=== PATIENT | female | born 1975 | race Caucasian/White ===

== ENCOUNTER 2017-03-20 10:43 | Emergency (ER) | payer BC ==
--- NOTE | 2017-03-20 12:50 | UC ---
Respiratory Complaint HPI - HPI Summary HPI Summary: Patient presents with an unremarkable past medical history. She presents today with complaints of 5 day onset sinus pain, pressure, and rhinorrhea, sore throat chest congestion and coughing. She reports that she believes she has been running a fever, but has not taken it. She denies chest pain, abdominal pain, nausea, vomiting, or diarrhea. States she has been using OTC cough and cold remedies without any relief. - History of Current Complaint Chief Complaint: UCRespiratory Stated Complaint: SORE THROAT, AND COUGH Time Seen by Provider: 03/20/17 12:37 Hx Obtained From: Patient Hx Last Menstrual Period: uterine ablation 2016 ?: No Onset/Duration: Lasting Days Timing: Constant Severity Initially: Mild Severity Currently: Moderate Character: Cough: Nonproductive Aggravating Factors: Recumbent Position Alleviating Factors: Upright Position, Spontaneous Resolution Associated Signs And Symptoms: Positive: URI, Nasal Congestion, Sinus Discomfort - Risk Factors Pulmonary Embolism Risk Factors: Negative Cardiac Risk Factors: Negative Pseudomonas Risk Factors: Negative Tuberculosis Risk Factors: Negative - Allergies/Home Medications Allergies/Adverse Reactions: Allergies Allergy/AdvReac Type Severity Reaction Status Date / Time Latex Allergy Rash Verified 03/20/17 11:00 Doxycycline AdvReac GI Upset Verified 03/20/17 11:00 Home Medications: Home Medications Chlorpheniramine-Phenylephrine [Coricidin D Cold/Flu/Sinu 2-5-325 mg] 2 tab PO Q4H PRN 03/20/17 [History Confirmed 03/20/17] Oxymetazoline 0.05% NASAL SPR* [Afrin 0.05% NASAL SPRAY*] 2 spr NASAL 03/20/17 [ History] PMH/Surg Hx/FS Hx/Imm Hx Previously Healthy: Yes - Surgical History Surgical History: Yes Surgery Procedure, Year, and Place: [place] [facility] [place]ies benign and [place] [facility] [place] plantars wart, right thigh tumor benign, UTERINE ABLATION - Family History Known Family History: Positive: Cardiac Disease, Hypertension - Social History Occupation: Employed Full-time Lives: Alone Alcohol Use: None Substance Use Type: None Smoking Status (MU): Former Smoker Type: Cigarettes Amount Used/How Often: PACK A WEEK Length of Time of Smoking/Using Tobacco: OCCASIONALY FOR A COUPLE YEARS IN EARLY 20'S Have You Smoked in the Last Year: No When Did the Patient Quit Smoking/Using Tobacco: 2004 - Immunization History Most Recent Influenza Vaccination: 2017 Review of Systems Constitutional: Negative Skin: Negative Eyes: Negative ENT: Sore Throat, Nasal Discharge, Sinus Congestion, Sinus Pain/Tenderness Respiratory: Negative Cardiovascular: Negative Gastrointestinal: Negative Genitourinary: Negative Motor: Negative Neurovascular: Negative Musculoskeletal: Negative Neurological: Negative Psychological: Negative Is Patient Immunocompromised?: No All Other Systems Reviewed And Are Negative: Yes Physical Exam Triage Information Reviewed: Yes Vital Signs: Initial Vital Signs Temp 98.6 F 03/20/17 10:56 Pulse 91 03/20/17 10:56 Resp 14 03/20/17 10:56 BP 131/87 03/20/17 10:56 Pulse Ox 97 03/20/17 10:56 Eye Exam: Normal ENT Exam: Normal Neck exam: Normal Neck: Positive: 1 Respiratory Exam: Normal Cardiovascular Exam: Normal Psychological Exam: Normal Skin Exam: Normal UC Diagnostic Evaluation - Laboratory O2 Sat by Pulse Oximetry: 97 Respiratory Course/Dx - Course Course Of Treatment: Patient presents with an unremarkable past medical history. VSS. Patient rapid strep was negative. Her symtpoms are viral and antibiotics at this time are contraindicated. She was instructed to continue with her current medical plan with OTC cough and cold remedies. - Differential Dx/Diagnosis Differential Diagnosis/HQI/PQRI: Other - URI Viral syndrome Provider Diagnoses: URI. Viral sydrome Discharge - Discharge Plan Condition: Stable Disposition: HOME Patient Education Materials: Upper Respiratory Infection (ED) Referrals: Joey Rodriguez MD [Primary Care Provider] -
[2017-03-20 13:03] VITALS: BP 136/82
== END 2017-03-20 12:58 | disposition home or self-care (01) ==
LOC: UCEAST 10:43
DX: J06.9 Acute upper respiratory infection, unspecified (principal); B34.9 Viral infection, unspecified; Z91.040 Latex allergy status; Z88.1 Allergy status to other antibiotic agents; Z87.891 Personal history of nicotine dependence
CPT/HCPCS: 87651; 99212; G0463

== ENCOUNTER 2017-09-30 20:41 | Emergency (ER) | payer BC ==
[2017-09-30 21:15] VITALS: BP 144/94
[2017-09-30] MEDS ORDERED: predniSONE TAB* 20 MG PO ONE (22:18)
--- NOTE | 2017-09-30 22:25 | UC ---
Per Talbert Rebecca, scribed for Fairba Tuttle MD on 09/30/17 at 2214 . Skin Complaint HPI - HPI Summary HPI Summary: Pt is a 42 y/o F who presents to [facility] c/o bilateral LE rash for 5 days. Rash is erythematous, pruritic and painful, ranked 3/10 on triage. Has tried using various sprays and taking Zuri for the itching, though it was not improving sx. Rash is not present anywhere else. Reports that it is draining, that if she does not wrap the region, it drains down her legs and into her shoes. Suspects that she was exposed while fishing over the weekend (5 days ago). Son was diagnosed with poison julisa today as well. Has taken Prednisone in the past for asthma without problems. - History of Current Complaint Chief Complaint: [facility] Time Seen by Provider: 09/30/17 22:00 Stated Complaint: RASHES Hx Obtained From: Patient Hx Last Menstrual Period: uterine ablation 2015 Onset/Duration: Lasting Days - 5 days, Still Present Current Severity: Mild Pain Intensity: 3 Pain Scale Used: 0-10 Numeric Location: Other - Bilateral LE Character: Pruritus, Pain, Redness Aggravating Factor(s): Nothing Alleviating Factor(s): Nothing Associated Signs & Symptoms: Positive: Drainage - Allergy/Home Medications Allergies/Adverse Reactions: Allergies Allergy/AdvReac Type Severity Reaction Status Date / Time doxycycline Allergy GI Upset Verified 09/30/17 21:17 Latex, Natural Rubber Allergy Rash Verified 09/30/17 21:17 Review of Systems Constitutional: Negative Skin: Rash - Bilateral LE rash with drainage Eyes: Negative ENT: Negative Respiratory: Negative Cardiovascular: Negative Gastrointestinal: Negative Genitourinary: Negative Motor: Negative Neurovascular: Negative Musculoskeletal: Negative Neurological: Negative Psychological: Negative All Other Systems Reviewed And Are Negative: Yes PMH/Surg Hx/FS Hx/Imm Hx - Additional Past Medical History Additional PMH: NEGATIVE PMHx: HTN, COPD Cardiovascular History: Other Other Cardiovascular History: Heart murmur, PACs Respiratory History: Asthma - Surgical History Surgical History: Yes Surgery Procedure, Year, and Place: [place] [facility] [place] B[place] Breast Lumpectomies benign and Reduction, [place], [facility] [place] left foot plantars wart, right thigh tumor benign, UTERINE ABLATION - Family History Known Family History: Positive: Cardiac Disease, Hypertension - Social History Lives: With Family Alcohol Use: Rare Substance Use Type: None Smoking Status (MU): Former Smoker Type: Cigarettes Amount Used/How Often: PACK A WEEK Length of Time of Smoking/Using Tobacco: OCCASIONALY FOR A COUPLE YEARS IN EARLY 20'S Have You Smoked in the Last Year: No When Did the Patient Quit Smoking/Using Tobacco: 2003 - Immunization History Most Recent Influenza Vaccination: 2016 Physical Exam Vital Signs: Initial Vital Signs Temp 99.1 F 09/30/17 21:10 Pulse 87 09/30/17 21:10 Resp 16 09/30/17 21:10 BP 144/94 09/30/17 21:10 Pulse Ox 98 09/30/17 21:10 Course/Dx - Course Course Of Treatment: Patient medications and allergies reviewed this visit. Discharge - Sign-Out/Discharge Documenting (check all that apply): Discharge/Admit/Transfer - Discharge - Discharge Plan Condition: Stable Disposition: HOME Prescriptions: predniSONE TAB* [Deltasone 20 MG TAB*] 20 mg PO DAILY #12 tab Patient Education Materials: Contact Dermatitis (ED) Referrals: Joey Rodriguez MD [Primary Care Provider] - Additional Instructions: - Take prednisone exactly as prescribed until gone - starting tomorrow - Okay to take Benadryl (1-2 tablets) every 6 hours as needed. This medication may cause drowsiness - do NOT drive, operate machinery or drink alcohol while taking Benadryl -Avoid getting over heated (hot showers, hot tubs, exercise) for at least 48 hours - Try to avoid aspirin, NSAIDs (Motrin, Aleve, Naprosyn) for 2-3 days - Okay to apply cool compresses to the area of injury - Go to an urgent care or an emergency department with questions or concerns - Billing Disposition and Condition Condition: STABLE Disposition: Home The documentation as recorded by the Per mcguire Rebecca accurately reflects the service I personally performed and the decisions made by , Fariba Tuttle MD.
== END 2017-09-30 22:40 | disposition home or self-care (01) ==
LOC: UCEAST 20:41
DX: R21 Rash and other nonspecific skin eruption (principal); Z88.0 Allergy status to penicillin; Z91.040 Latex allergy status; Z87.891 Personal history of nicotine dependence
CPT/HCPCS: 99212; G0463; J7512

== ENCOUNTER 2018-07-22 08:16 | Emergency (ER) | payer BC ==
[2018-07-22 08:25] VITALS: BP 127/86
--- NOTE | 2018-07-22 10:06 | UC ---
General HPI - HPI Summary HPI Summary: 43 yo female c/o last several days sinus congestion and now + cough. No fever / chills. Unsure of color of phlegm (doesn't look). No rash. No sob /cp / palpitations. No GI iissues. Some ear fullness. Hx bronchospasm younger, but not much now. Does have inhaler, not sure how old. - History of Current Complaint Chief Complaint: UCRespiratory Stated Complaint: sinus headache Time Seen by Provider: 07/22/18 09:36 Hx Obtained From: Patient Hx Last Menstrual Period: ablasion Pain Intensity: 3 - Allergy/Home Medications Allergies/Adverse Reactions: Allergies Allergy/AdvReac Type Severity Reaction Status Date / Time doxycycline Allergy GI Upset Verified 07/22/18 08:25 Latex, Natural Rubber Allergy Rash Verified 07/22/18 08:25 PMH/Surg Hx/FS Hx/Imm Hx Previously Healthy: Yes - see hpi - Surgical History Surgical History: Yes Surgery Procedure, Year, and Place: [place]al L[place] [facility] [place] Bilateral Breast Lumpectomies benign and Reduction, 2003, [facility] [place] left foot plantars wart, right thigh tumor benign, UTERINE ABLATION - Family History Known Family History: Positive: Cardiac Disease, Hypertension - Social History Alcohol Use: None Substance Use Type: None Smoking Status (MU): Former Smoker Type: Cigarettes Amount Used/How Often: PACK A WEEK Length of Time of Smoking/Using Tobacco: OCCASIONALY FOR A COUPLE YEARS IN EARLY 20'S Have You Smoked in the Last Year: No When Did the Patient Quit Smoking/Using Tobacco: 2003 - Immunization History Most Recent Influenza Vaccination: 2016 Review of Systems All Other Systems Reviewed And Are Negative: Yes Constitutional: Positive: Other - see hpi Skin: Positive: Other Eyes: Positive: Other - see hpi ENT: Positive: Sore Throat, Nasal Discharge, Sinus Congestion, Other - see hpi Respiratory: Positive: Cough Cardiovascular: Positive: Other - see hpi Gastrointestinal: Positive: Other - see hpi Genitourinary: Positive: Negative Neurovascular: Positive: Other Musculoskeletal: Positive: Other: Neurological: Positive: Other Psychological: Positive: Negative Is Patient Immunocompromised?: No Physical Exam Triage Information Reviewed: Yes Appearance: Well-Appearing, Well-Nourished Vital Signs: Initial Vital Signs Temp 98 F 07/22/18 08:22 Pulse 96 04/26/19 08:22 Resp 16 07/22/18 08:22 BP 127/86 07/22/18 08:22 Pulse Ox 99 07/22/18 08:22 Vital Signs Reviewed: Yes Eye Exam: Normal - grossly normal ENT: Positive: Nasal congestion, Other - TM dull, swain au. L tm rxt'd Neck exam: Normal Neck: Positive: Supple, Nontender, No Lymphadenopathy Respiratory Exam: Other - BS equal, + exp faint wheeze. + rhonchorus cough. Respiratory: Positive: No respiratory distress, No accessory muscle use Cardiovascular Exam: Normal Cardiovascular: Positive: RRR, Pulses Normal, Brisk Capillary Refill Abdominal Exam: Normal Abdomen Description: Positive: Nontender Musculoskeletal Exam: Normal - grossly normal Neurological Exam: Normal - nonfocal Psychological Exam: Normal - conversing easily and appropriately Skin Exam: Normal - no visible or reported rash Course/Dx - Course Course Of Treatment: Declines work note. Reviewed coa / tx plan. Questions answered as posed to the best of my ability. - Diagnoses Provider Diagnosis: Bronchitis, Sinusitis, Bronchospasm Discharge - Sign-Out/Discharge Documenting (check all that apply): Patient Departure All imaging exams completed and their final reports reviewed: No Studies - Discharge Plan Condition: Stable Disposition: HOME Prescriptions: Albuterol HFA INHALER* [Ventolin HFA Inhaler*] 1 - 2 puff INH Q4H PRN #1 mdi PRN Reason: Wheezing Azithromyxin DAVIDE (NF) [Z-Davide (Zithromax) 250 mg tabs #6] 2 tab PO .TODAY, THEN 1 DAILY #6 tab Patient Education Materials: Sinusitis (ED), Acute Bronchitis (ED), Bronchospasm (ED) Referrals: Joey Rodriguez MD [Primary Care Provider] - Additional Instructions: Follow up with your primary care physician, per routine. Seek medical attention for worse or new problems in the meantime. - Billing Disposition and Condition Condition: STABLE Disposition: Home
== END 2018-07-22 09:59 | disposition home or self-care (01) ==
LOC: UCEAST 08:16
DX: J20.9 Acute bronchitis, unspecified (principal); J32.9 Chronic sinusitis, unspecified; Z88.1 Allergy status to other antibiotic agents; Z91.040 Latex allergy status; Z87.891 Personal history of nicotine dependence
CPT/HCPCS: 99212; G0463

== ENCOUNTER 2018-08-04 13:42 | Emergency (ER) | payer BC ==
[2018-08-04 13:51] VITALS: BP 156/85
--- NOTE | 2018-08-04 14:22 | UC ---
Respiratory Complaint HPI - HPI Summary HPI Summary: Patient presents with residual cough; was treated with Z facundo for cough and sinusitis in last 2 weeks. Denies temperature. White sputum production. No chest pain or SOB. Mild discmfort with cough. - History of Current Complaint Chief Complaint: UCRespiratory Stated Complaint: congested Time Seen by Provider: 08/04/18 14:08 Hx Obtained From: Patient Hx Last Menstrual Period: ablasion Onset/Duration: Gradual Onset Severity Initially: Mild Pain Intensity: 2 Pain Scale Used: 0-10 Numeric Character: Cough: Nonproductive Aggravating Factors: Exertion Alleviating Factors: Nothing Associated Signs And Symptoms: Negative: Dyspnea, Fever, Chills, Pleuritic Chest Pain, Wheezing, Hemoptysis - Risk Factors Pulmonary Embolism Risk Factors: Negative Cardiac Risk Factors: Negative Pseudomonas Risk Factors: Negative - Allergies/Home Medications Allergies/Adverse Reactions: Allergies Allergy/AdvReac Type Severity Reaction Status Date / Time doxycycline Allergy GI Upset Verified 08/04/18 13:51 Latex, Natural Rubber Allergy Rash Verified 08/04/18 13:51 PMH/Surg Hx/FS Hx/Imm Hx - Additional Past Medical History Additional PMH: PMH: treated recently for sinusitis with Z facundo; July 22 2018. hX POSTIIVE FOR : ASTHMA, MIGRAINE, IBS, fibromyalgia; thyroid nodule. hAS RIGHT KIDNEY PROBLEM SINCE CHILDHOOD. No anti-hypertensive meds. Former smoker. fAMILY HISTORY: HTN; CVD. 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 Previously Healthy: Yes - Surgical History Surgical History: Yes Surgery Procedure, Year, and Place: [place] [facility] [place] Breast Lumpectomies benign and Reduction, 2003, [facility] [place], left foot plantars wart, right thigh tumor benign, UTERINE ABLATION - Family History Known Family History: Positive: Cardiac Disease, Hypertension - Social History Alcohol Use: None Substance Use Type: None Smoking Status (MU): Former Smoker Type: Cigarettes Amount Used/How Often: PACK A WEEK Length of Time of Smoking/Using Tobacco: OCCASIONALY FOR A COUPLE YEARS IN EARLY 20'S Have You Smoked in the Last Year: No When Did the Patient Quit Smoking/Using Tobacco: 2003 - Immunization History Most Recent Influenza Vaccination: 2016 Review of Systems All Other Systems Reviewed And Are Negative: Yes Constitutional: Positive: Negative, Fever ENT: Positive: Negative Respiratory: Positive: Cough Cardiovascular: Positive: Negative. Negative: Palpitations Gastrointestinal: Positive: Negative. Negative: Abdominal Pain Genitourinary: Positive: Negative. Negative: Dysuria Is Patient Immunocompromised?: No Physical Exam Vital Signs: Initial Vital Signs Temp 98 F 08/04/18 13:47 Pulse 91 08/04/18 13:47 Resp 17 08/04/18 13:47 BP 156/85 08/04/18 13:47 Pulse Ox 99 08/04/18 13:47 Eye Exam: Normal ENT Exam: Normal Dental Exam: Normal Neck exam: Normal Neck: Positive: 1 Respiratory: Positive: Chest non-tender, Rhonchi - rare, expiratory righrt, Expiration - extended expiratory phase. Negative: Lungs clear, Normal breath sounds, No respiratory distress, No accessory muscle use, Respiratory distress, Decreased breath sounds, Accessory muscle use, Crackles, Stridor, Wheezing, Inspiration, Plerual rub Cardiovascular Exam: Normal Cardiovascular: Positive: RRR, No Murmur Abdominal Exam: Normal Abdomen Description: Positive: Nontender, No Organomegaly Musculoskeletal Exam: Normal Neurological Exam: Normal Psychological Exam: Normal Skin Exam: Normal Respiratory Course/Dx - Course Course Of Treatment: MDM: Healthy 43 yo with continued cough after treatment with Z facundo on July 22, 2018. PMH significant for asthma with rare use of albuterol without spacer. Lungs are clear. My dx is viral bronchitis with bronchospasm. I will give patient a spacer to use with albuterol and predisone. She will follow up for any temperature, chest pain or shortness of breath. eLEVATED BLOOD PRESSURE NOTED AND DISCUSSED. PATIENT WILL FOLLOW UP WITH PMD. - Differential Dx/Diagnosis Differential Diagnosis/HQI/PQRI: Asthma, Bronchitis, Lower Resp Infection Provider Diagnosis: Bronchospasm with bronchitis, acute Discharge - Sign-Out/Discharge Documenting (check all that apply): Patient Departure All imaging exams completed and their final reports reviewed: No Studies - Discharge Plan Condition: Stable Disposition: HOME Prescriptions: Inhaler, Assist Devices [Aerochamber Mv] 1 mis XX Q6HR #1 mis MDD 8 puffs a day predniSONE [Prednisone 20 MG TAB] 20 mg PO BID #6 tab MDD 2 Patient Education Materials: Acute Bronchitis (ED), Bronchospasm (ED) Referrals: Joey Rodriguez MD [Primary Care Provider] - Additional Instructions: WE DISCUSSED: You don't have pneumonia but you do have viral bronchitis with some bronchospasm from your asthma. Your blood pressure was high: 156/85. Follow up with your doctor in the next month. I have given you a spacer to use with your albuterol: 2 puffs 2-4 times a day. I have also given you a few days of prednisone. Also see instructions below: COUGH, CONGESTION of CHEST, SINUSES OR EARS: USEFUL WAYS TO FEEL BETTER WITHOUT MEDICATIONS The most important goal is to liquefy all the phlegm and get it out of your head and chest. For sore throat, it is important to keep throat moist and protected. .Any illness causing cough, congestion, sore throat or sinus discomfort can be helped by doing the following: FOR HEAD, SINUSES and CHEST: STAND UNDER SHOWER STREAM TO LOOSEN SECRETIONS. USE A VAPORIZOR. STAY AWAY FROM ANY SMOKE OR IRRITANTS. USE SALINE NASAL SPRAY TO KEEP FLOW OF MUCOUS FROM NOSTRILS AND SINUSES. CONSIDER USING NETI POT TO HELP WITH ALLERGIES AND CONGESTION IN THE NOSE. USE THIS THREE TIMES A WEEK. YOU CAN GET THIS AT [employer] IN [place] OR [employer]. FOR SORE THROAT: DRINK LOTS OF WARM FLUIDS WARM WATER GARGLES, WITH TSP OF SALT PER 8 OUNCES OF WATER, GARGLE FOR A FEW SECONDS AND SPIT OUT; GARGLE AND SPIT OUT, EVERY THREE HOURS. AND/OR: WARM WATER OR TEA, HONEY AND LEMON; 2-3 CUPS A DAY. KEEP THROAT MOIST and PROTECTED WITH LOZENGES. USE VAPORIZOR. DONT LET THROAT DRY OUT. GENERAL TYPES OF OVER THE COUNTER MEDICINE THAT MAY HELP WITH COUGH, SINUS CONGESTION OR SORE THROAT: Make sure to check with your pharmacist if you are taking other prescription medication prior to taking any of the medications listed here. DECONGESTANTS: helps relieve stuffiness and clears sinuses. Pseudoephedrine ( Sudafed or generic) is effective but you need to ask the pharmacist for it because it may be kept behind the counter. ANTIHISTAMINES: are NOT helpful in many colds and flus because they can worsen sore throat, dry eyes and mouth and cause drowsiness. Examples are diphenhydramine, doxylamine and chlorpheniramine. They can help dry you out if you are having profuse, clear drainage from the nose. EXPECTORANTS: helps thin mucous in the nose and chest, making it easier to clear the fluid out. Expectorants are in most combination cough/cold remedies and should be taken with plenty of water. Guaifenesin is the most common expectorant and it comes in pill or liquid form. Mucinex is an extended release form of guaifenesin. COUGH SUPPRESANT: reduces the body's cough reflex. Dextromethorphan is in over the counter products, but sometimes narcotics such as codeine or hydrocodone are used to suppress cough. SPECIFIC MEDICATIONS: The following medicines may help: To help with cough: DEXTROMETHORPHAN (Vicks, Robitussin, Nyquil and other brands) To help break up phlegm: GUAIFENESIN (Mucinex, Robitussin, other brands) To help clear congestion in the nose and sinuses: PSEUDOEPHEDRINE (Sudafed, Dimetapp, other brands) To help clear nasal congestion: AFRIN NASAL SPRAY: 2-3 SPRAYS PER NOSTRIL, TWICE A DAY FOR TWO DAYS ONLY. FLONASE: (or other steroid nasal sprays) can help if your running nose is caused by an allergy. It can help relieve congestion. It is used once a day in each nostril. Check the dose with your pharmacist. FOLLOW UP for RESPIRATORY, SINUS OR THROAT ILLNESS: RE-CHECK IN 1O DAYS, NEEDED, IF YOU ARE NOT IMPROVING. RETURN HERE OR SEE YOUR PHYSICIAN. RE-CHECK SOONER IF INCREASED PAIN OR TEMPERATURE WITH COUGH, SINUS PAIN OR SORE THROAT. - Billing Disposition and Condition Condition: STABLE Disposition: Home
== END 2018-08-04 14:50 | disposition home or self-care (01) ==
LOC: UCEAST 13:42
DX: J20.9 Acute bronchitis, unspecified (principal); R03.0 Elevated blood-pressure reading, without diagnosis of hypertension; J45.909 Unspecified asthma, uncomplicated; E04.1 Nontoxic single thyroid nodule; G43.909 Migraine, unspecified, not intractable, without status migrainosus; K58.9 Irritable bowel syndrome, unspecified; M79.7 Fibromyalgia; Z88.1 Allergy status to other antibiotic agents; Z91.040 Latex allergy status; Z82.49 Family history of ischemic heart disease and other diseases of the circulatory system; Z87.891 Personal history of nicotine dependence
CPT/HCPCS: 99212; G0463

== ENCOUNTER 2019-06-08 18:49 | Emergency (ER) | payer BC ==
[2019-06-08 19:15] VITALS: BP 131/87
--- NOTE | 2019-06-08 19:59 | UC ---
Throat Pain/Nasal Jesse HPI - HPI Summary HPI Summary: 44-year-old woman comes in with a chief complaint of upper respiratory tract infection symptoms for 12 days. She started out with runny nose and nasal congestion. Recently she's started having more of sore throat feel like her tonsils are swollen. Last couple days she's noticed some white plaques on her cheeks and back of her throat. Today her tongue hurts. She feels like her tonsils are swollen but denies feeling like her tongue is swollen. No chest congestion or shortness of breath. 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 Pain Intensity: 3 - Allergies/Home Medications Allergies/Adverse Reactions: Allergies Allergy/AdvReac Type Severity Reaction Status Date / Time doxycycline Allergy GI Upset Verified 06/08/19 19:16 Latex, Natural Rubber Allergy Rash Verified 06/08/19 19:16 Home Medications: Home Medications Ibuprofen TAB* [Advil TAB*] 400 mg PO Q6H PRN 05/21/18 [History Confirmed ] Amoxicillin PO (*) [Amoxicillin 875 MG (*)] 875 mg PO BID #20 tab 06/08/19 [Rx] Lisinopril TAB* [Prinivil TAB*] 10 mg PO QPM 06/08/19 [History Confirmed ] Nystatin SUSPENSION ORAL SYR* 100,000 units PO QID #200 ml 06/08/19 [Rx] PMH/Surg Hx/FS Hx/Imm Hx Previously Healthy: Yes Cardiovascular History: Hypertension - Surgical History Surgical History: Yes Surgery Procedure, Year, and Place: Tubal Ligation, 2000, [facility] – [place]. Bilateral Breast Lumpectomies benign and Reduction, 2003, [facility] – [place], left foot plantars wart, right thigh tumor benign, [facility] - Family History Known Family History: Positive: Cardiac Disease, Hypertension - Social History Alcohol Use: Rare Substance Use Type: None Smoking Status (MU): Former Smoker Type: Cigarettes Amount Used/How Often: PACK A WEEK Length of Time of Smoking/Using Tobacco: OCCASIONALY FOR A COUPLE YEARS IN EARLY 20'S Have You Smoked in the Last Year: No When Did the Patient Quit Smoking/Using Tobacco: 2003 - Immunization History Most Recent Influenza Vaccination: 2017 Review of Systems All Other Systems Reviewed And Are Negative: Yes Constitutional: Positive: Other - SEE HPI Skin: Positive: Negative Eyes: Positive: Negative ENT: Positive: Sore Throat, Nasal Discharge, Sinus Congestion Respiratory: Positive: Negative Cardiovascular: Positive: Negative Gastrointestinal: Positive: Negative Motor: Positive: Negative Neurovascular: Positive: Negative Musculoskeletal: Positive: Negative Neurological/Mental Status: Positive: Negative Psychological: Positive: Negative Is Patient Immunocompromised?: No Physical Exam Triage Information Reviewed: Yes Appearance: No Pain Distress, Well-Nourished, Ill-Appearing - MILD Vital Signs: Initial Vital Signs Temp 99.1 F 06/08/19 19:11 Pulse 101 06/08/19 19:11 Resp 16 06/08/19 19:11 BP 131/87 06/08/19 19:11 Pulse Ox 97 06/08/19 19:11 Vital Signs Reviewed: Yes Eye Exam: Normal Eyes: Positive: Conjunctiva Clear ENT: Positive: Pharyngeal erythema, Nasal congestion, TMs normal, Tonsillar swelling - 2+ B/L, Other - Tongue is mildly red with some 4-5 mm white plaques scattered on it. Oral pharynx is open. Posterior pharynx is symmetric uvula is midline. Uvula does not appear to be swollen. No evidence of peritonsillar abscess at this time. Neck: Positive: Supple Respiratory: Positive: Lungs clear, Normal breath sounds, No respiratory distress Cardiovascular: Positive: RRR Musculoskeletal: Positive: Strength Intact, ROM Intact Neurological: Positive: Alert, Muscle Tone Normal Psychological: Positive: Age Appropriate Behavior Skin Exam: Normal Throat Pain/Nasal Course/Dx - Course Course Of Treatment: With symptoms of gone past 10 days will treat with amoxicillin. 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 Patient is on lisinopril I do not appreciate any angioedema. We discussed angioedema with the patient. Worse white plaques on the tongue we'll treat for thrush. Patient's to get reevaluated if not improved or worsening. - Differential Dx/Diagnosis Provider Diagnosis: Tonsillitis, Thrush, oral Discharge ED - Sign-Out/Discharge Documenting (check all that apply): Patient Departure All imaging exams completed and their final reports reviewed: No Studies - Discharge Plan Condition: Stable Disposition: HOME Prescriptions: Amoxicillin PO (*) [Amoxicillin 875 MG (*)] 875 mg PO BID #20 tab Nystatin SUSPENSION ORAL SYR* 100,000 units PO QID #200 ml Patient Education Materials: Oral Candidiasis (ED), Tonsillitis (ED) Referrals: Joey Rodriguez MD [Primary Care Provider] - Additional Instructions: FOLLOW UP WITH YOUR DOCTOR IF NOT COMPLETELY IMPROVED. GET REVALUATED SOONER IF NOT IMPROVED OR WORSE OR ANY QUESTIONS OR CONCERNS. - Billing Disposition and Condition Condition: STABLE Disposition: Home
== END 2019-06-08 20:15 | disposition home or self-care (01) ==
LOC: UCEAST 18:49
DX: J03.90 Acute tonsillitis, unspecified (principal); B37.0 Candidal stomatitis; I10 Essential (primary) hypertension; Z91.040 Latex allergy status; Z88.1 Allergy status to other antibiotic agents; Z79.899 Other long term (current) drug therapy; Z87.891 Personal history of nicotine dependence
CPT/HCPCS: 99212; G0463

== ENCOUNTER 2024-01-04 05:56 | Inpatient (IN) ==
[~2024-01-04 05:56] MED LIST: Metoclopramide 5 MG/ML VIAL (10 mg) IV PRN; NS 0.45% 1000 ml BAG 1,000 ML IV SCH; Naloxone 0.4 mg VIAL 0.4 mg/ml 1 ml VIAL IV PRN; Ondansetron 4 mg VIAL 2 MG/ML 2 ml VIAL IV PRN
[2024-01-04] MEDS ORDERED: Methylene Blue 1% (ANTIDOTE) 10 MG/ML 10 ML SDV VIAL IVPB ONE (06:42)
[2024-01-04] MEDS ORDERED: Bupivacaine 0.25% EPI 200,000 30 ML SDV ONE (06:43)
[2024-01-04 06:58] LABS: Rapid COVID-19 Molecular Undetected (Undetected)
[2024-01-04] MEDS ORDERED: Scopolamine 1 mg/72hr PATCH ONE (06:59)
[2024-01-04] MEDS ORDERED: Heparin 5000 UNITS/ML 1 mL VIAL ONE (06:59)
[2024-01-04] MEDS ORDERED: ceFAZolin 2 GM PREMIX 2 GM/50 ML BAG ONE (07:00)
[2024-01-04] MEDS ORDERED: Acetaminophen IV 1 GM/100ML 1,000 MG/100 ML BAG IV ONE (07:06)
[2024-01-04] MEDS ORDERED: Rocuronium 50 mg VIAL 10 mg/ml 5 ml VIAL (50 mg) ONE ×2 (07:10→08:15)
[2024-01-04] MEDS ORDERED: fentaNYL 100 mcg/2 ml 50 MCG/ML VIAL ONE ×4 (07:11→11:13)
[2024-01-04] MEDS ORDERED: Propofol 10 MG/ML 20 ML BTL ONE (07:11)
[2024-01-04] MEDS: Scopolamine 1 mg/72hr PATCH TRANSDERM ONE (07:12)
[2024-01-04] MEDS: Buffered Lidocaine 1% SYRIN 1 ml INTRADERM ONE (07:12)
[2024-01-04] MEDS: Acetaminophen IV 1 GM/100ML 1,000 MG/100 ML BAG IV ONE (07:12)
[2024-01-04] MEDS ORDERED: HYDROmorphone 0.5 MG/0.5 ML SYRINGE ONE (07:12)
[2024-01-04] MEDS: Lactated Ringers 1000 ml BAG 1,000 ML IV SCH ×2 (07:12→12:00)
[2024-01-04] MEDS ORDERED: Lidocaine 2% PF 5 ML VIAL ONE (07:19)
[2024-01-04] MEDS ORDERED: Dexamethasone IV 4 MG/ML VIAL 1 ml VIAL ONE (07:52)
[2024-01-04] MEDS ORDERED: Ondansetron 4 mg VIAL 2 MG/ML 2 ml VIAL ONE (07:52)
[2024-01-04] MEDS ORDERED: Glycopyrrolate IV 0.2 MG/ML 1 ML VIAL ONE (07:52)
[2024-01-04] MEDS: fentaNYL 100 mcg/2 ml 50 MCG/ML VIAL IV PRN (10:32)
[2024-01-04] MEDS: Ondansetron 4 mg VIAL 2 MG/ML 2 ml VIAL IV PRN (12:59)
[2024-01-04] MEDS: Famotidine IV 10 MG/ML 2 ml VIAL (20 mg) IV SLOW PU SCH (21:24)
[2024-01-05 06:25] LABS: ABS Monocytes 0.7 10^3/uL (0.0-0.9); ABS Neutrophils 11.4 10^3/uL (1.5-7.6); Hematocrit 27.5 % (35-45); Hemoglobin 9.2 g/dL (11.5-14.3); Lymphocyte % 7.3 %; Mean Corpuscular Hemoglobin 29.5 pg (27-33); Mean Corpuscular Hgb Conc 33.5 g/dL (31-36); Mean Corpuscular Volume 88.1 fL (80-97); Mean Platelet Volume 8.8 fL (7.5-11.2); Platelet Count 398 10^3/uL (150-450); Red Blood Count 3.13 10^6/uL (3.63-4.92); Red Cell Distribution Width 13.4 % (12-17); White Blood Count 13.1 10^3/uL (3.8-11.8)
[2024-01-05 07:05] LABS: Albumin 3.2 g/dL (3.2-5.2); Albumin/Globulin Ratio 1.7 (1-3); Calcium 7.9 mg/dL (8.6-10.3); Creatinine, Serum 0.78 mg/dL (0.51-0.95); Globulin 1.9 g/dL (2-4); Magnesium 1.7 mg/dL (1.9-2.7); Potassium 4.8 mmol/L (3.5-5.0); Total Bilirubin 0.3 mg/dL (0.2-1.0); Total Protein 5.1 g/dL (6.4-8.9); eGFR CKD-EPI 92.5 (>60)
[2024-01-05] MEDS: Lactated Ringers 1000 ml BAG 1,000 ML IV SCH (07:10)
[2024-01-05 07:24] LABS: ABS Monocytes 0.6 10^3/uL (0.0-0.9); ABS Neutrophils 10.3 10^3/uL (1.5-7.6); Hematocrit 24.8 % (35-45); Hemoglobin 8.4 g/dL (11.5-14.3); Mean Corpuscular Hemoglobin 29.6 pg (27-33); Mean Corpuscular Hgb Conc 33.7 g/dL (31-36); Platelet Count 380 10^3/uL (150-450); Red Blood Count 2.82 10^6/uL (3.63-4.92); Red Cell Distribution Width 14.1 % (12-17); White Blood Count 11.8 10^3/uL (3.8-11.8)
[2024-01-05 07:30] LABS: INR 1.28 (0.85-1.14)
[2024-01-05 07:47] LABS: Calcium 7.5 mg/dL (8.6-10.3); Creatinine, Serum 0.84 mg/dL (0.51-0.95); eGFR CKD-EPI 84.6 (>60)
[2024-01-05] MEDS: Magnesium Sulfate 2 gm BAG 2 GM/50 ML BAG IVPB ONE (09:04)
[2024-01-05] MEDS ORDERED: D5W 1/2 NS KCl 20 meq 1000 ml 1,000 ML IV SCH (10:00)
[2024-01-05] MEDS: Acetaminophen IV 1 GM/100ML 1,000 MG/100 ML BAG IV PRN (11:00)
[2024-01-05 12:27] LABS: Hematocrit 27.6 % (35-45); Hemoglobin 9.3 g/dL (11.5-14.3)
[2024-01-05 16:42] LABS: Hematocrit 26.9 % (35-45); Hemoglobin 8.9 g/dL (11.5-14.3)
[2024-01-05 20:54] LABS: Hemoglobin 8.2 g/dL (11.5-14.3)
[2024-01-06 00:17] LABS: Hematocrit 22.7 % (35-45); Hemoglobin 7.6 g/dL (11.5-14.3)
[2024-01-06] MEDS: Dextrose 50% Syringe 50 ml 25 GM/50 ML SYRINGE IV PUSH PRN (02:51)
[2024-01-06] MEDS: D5W 1/2 NS 1000 ml BAG 1,000 ML IV SCH (08:29)
[2024-01-06] MEDS ORDERED: HYDROcodone/ACET. 7.5/325 LIQ 15 ML UDC PO PRN (08:54)
[2024-01-06 10:03] LABS: Hematocrit 25.9 % (35-45); Hemoglobin 8.6 g/dL (11.5-14.3)
[2024-01-06 10:48] LABS: Calcium 7.8 mg/dL (8.6-10.3); Creatinine, Serum 0.67 mg/dL (0.51-0.95); Magnesium 1.9 mg/dL (1.9-2.7); Potassium 4.1 mmol/L (3.5-5.0); eGFR CKD-EPI 106.4 (>60)
[2024-01-06 14:05] LABS: Hematocrit 26.2 % (35-45); Hemoglobin 8.8 g/dL (11.5-14.3)
[2024-01-06 18:32] LABS: Hematocrit 24.9 % (35-45); Hemoglobin 8.6 g/dL (11.5-14.3)
[2024-01-07 06:31] LABS: Hematocrit 24.7 % (35-45); Hemoglobin 8.3 g/dL (11.5-14.3)
[2024-01-07] MEDS: D5W 1/2 NS 1000 ml BAG 1,000 ML IV SCH (14:39)
[2024-01-07 14:45] LABS: Hematocrit 25.2 % (35-45); Hemoglobin 8.7 g/dL (11.5-14.3)
[2024-01-08 05:57] LABS: Hematocrit 24.9 % (35-45); Hemoglobin 8.4 g/dL (11.5-14.3)
[2024-01-08 10:00] VITALS: BP 127/80
== END 2024-01-08 10:25 | disposition home or self-care (01) | DRG 403 ==
LOC: AA 05:56 → SSU 09:51
PROVIDERS: ADMIT Surgery; ATTEND Surgery